=== PATIENT | female | born 1960 | race African-American/Black ===

== ENCOUNTER 2021-01-08 14:09 | Emergency (ER) | payer OTHER ==
[~2021-01-08] VITALS: Ht 165.1 cm; Wt 79.4 kg
[2021-01-08 14:47] LABS: ABSOLUTE NEUTROPHILS 3.4 thou/uL (1.4-8.2); BASOPHILS 0.6 % (0.0-2.0); EOSINOPHILS 2.9 % (0.0-3.0); HEMATOCRIT 38.5 % (37.0-47.0); HEMOGLOBIN 12.4 gm/dL (12.0-15.0); LYMPHOCYTES 36.6 % (24.0-44.0); MCH 26.1 pg (26.0-34.0); MCHC 32.2 g/dL (28.0-37.0); MONOCYTES 7.1 % (1.0-8.0); PLATELET COUNT 287 thou/uL (150-400); POLYS 52.8 % (36.0-66.0); RBC 4.75 mil/uL (4.20-5.00); RDW 15.3 % (10.5-14.5); WBC 6.5 thou/uL (4.0-11.0)
[2021-01-08 14:59] LABS: ANION GAP 10 mmol/L (7-16); BUN 11 mg/dL (7-18); CALCIUM 8.6 mg/dL (8.5-10.1); CHLORIDE 104 mmol/L (98-107); CO2 25 mmol/L (21-32); CREATININE 1.2 mg/dL (0.6-1.0); GLUCOSE 107 mg/dL (74-106); SODIUM 139 mmol/L (136-145)
[2021-01-08 15:00] LABS: POTASSIUM 3.8 mmol/L (3.5-5.1)
[2021-01-08 15:08] LABS: ALBUMIN 3.8 g/dL (3.4-5.0); SGOT 28 U/L (15-37); SGPT 27 U/L (30-65); TOTAL BILIRUBIN 0.3 mg/dL (0.2-1.0); TROPONIN-I <0.06 ng/mL (<0.06)
[2021-01-08] MEDS ORDERED: PROTONIX40 M2 PO (15:52)
[2021-01-08] MEDS ORDERED: MEDROLDOSEPACK PO (15:52)
[2021-01-08 15:55] VITALS: BP 137/109
--- NOTE | 2021-01-09 07:03 | EKG ---
[place] [address] [facility] [place] [address] ELECTROCARDIOGRAM REPORT Name: MARY NOVOA [id number] Admission: 01/08/21 Attend Phys: Discharge: 01/08/21 Date of : 64 Report #: [id number] [facility] ED Test Date: 2021-01-08 Test Time: 14:17:23 Pat Name: MARY NOVOA Department: Room: Gender: F Manager Of Planning: MINNIE : 1960 Requested By: Brandie Wilkerson Order Number: [id number] MD: Krunal Gutierrez Measurements Intervals [place] Rate: 87 P: 70 [place]: 141 QRS: 13 QRSD: 90 T: 25 QT: 402 QTc: 484 Interpretive Statements Sinus rhythm Probable left atrial enlargement Left ventricular hypertrophy Baseline wander in lead(s) III,aVR,aVL Compared to ECG 03/14/2006 15:34:29 Left ventricular hypertrophy now present Sinus arrhythmia no longer present Electronically Signed On 01-09-2021 7:03:03 CDT by Krunal Gutierrez [email or web address] <ELECTRONICALLY SIGNED> By: Krunal Gutierrez MD, [facility] 01/09/21 0703 [id number] Krunal Gutierrez MD, [facility] /EPI
== END 2021-01-08 16:08 | disposition home or self-care (01) ==
LOC: ER 14:09
PROVIDERS: Nurse Practitioner Family
DX: R07.9 Chest pain, unspecified (principal); M79.601 Pain in right arm; M79.602 Pain in left arm; I10 Essential (primary) hypertension; Z90.710 Acquired absence of both cervix and uterus; Z88.5 Allergy status to narcotic agent

== ENCOUNTER → 2021-01-15 | Outpatient (CLI) | payer OTHER ==
[~2021-01-15] MED LIST: MEDROLDOSEPACK PO; PROTONIX40 M2 PO
[2021-01-15 13:09] LABS: ALBUMIN 3.8 g/dL (3.4-5.0); CALCIUM 8.8 mg/dL (8.5-10.1); CREATININE 1.4 mg/dL (0.6-1.0); POTASSIUM 4.4 mmol/L (3.5-5.1); TOTAL BILIRUBIN 0.3 mg/dL (0.2-1.0); TOTAL PROTEIN 7.6 g/dL (6.4-8.2)
== END ==
LOC: LAB 11:58
PROVIDERS: ATTEND Family Medicine
DX: I10 Essential (primary) hypertension (principal)